=== PATIENT | female | born 1945 ===

== ENCOUNTER → 2018-01-07 | Day surgery (SDC) | payer OTHER ==
[~2018-01-07] MED LIST: ATORVASTATIN CA10 MG PO; JANUMET XR 1001 EACH PO; PRINIVIL5 MG PO
== END | disposition home or self-care (01) ==
LOC: ADM 01-01 11:00 → CIR.AMB 06:43
DX: C44.91 Basal cell carcinoma of skin, unspecified (principal); K64.1 Second degree hemorrhoids